=== PATIENT | female | born 1945 | race Caucasian/White ===

== ENCOUNTER 2016-09-19 13:41 | Inpatient (IN) | payer MEDICARE ==
[~2016-09-19] VITALS: Ht 162.6 cm; Wt 98.2 kg
[~2016-09-19 13:41] MED LIST changes: -ALLO100T PO; -ASPI325T PO; -CHOL400D2 PO; -CLIN1CAP6 PO; -COLC1TAB15 PO; -COMMODE 3-IN-11 MIS; -CURCPOW PO; -ENOX40P SQ; -HYDR-3288 PO; -HYDR-3678 PO; -HYDR2TAB PO; -LISI-515 PO; -LISI10TA3 PO; -VITA400C5 PO; -WALKER WHEELS/F1 MIS
[2016-09-19] MEDS ORDERED: ALLO100T PO (14:41)
[2016-09-19] MEDS ORDERED: VITA400C5 PO (14:41)
[2016-09-19] MEDS ORDERED: COLC1TAB15 PO (14:41)
[2016-09-19] MEDS ORDERED: HYDR-3678 PO (14:41)
[2016-09-24] MEDS ORDERED: CHLORHEXIDINE GLUCONATE 2 % 1 PACK (2 CLOTHS) TOPICAL PRN (09:45)
[2016-09-24] MEDS ORDERED: POVIDONE IODINE 5% (ANTISEPSIS KIT) 4 APPLICATIONS EACH NARE PRN (09:45)
[2016-09-24] MEDS ORDERED: INSULIN HUMAN REGULAR 1,000 UNITS/10 ML VIAL SQ PRN (09:45)
[2016-09-24] MEDS ORDERED: METOPROLOL TARTRATE 25 MG TAB PO PRN (09:45)
[2016-09-24] MEDS ORDERED: LACTATED RINGER'S 1000 ML IV PRN (09:45)
[2016-09-24] MEDS ORDERED: SODIUM CHLORID 0.9% 500 ML IV PRN (09:45)
[2016-09-24] MEDS ORDERED: TRANEXAMIC ACID INJ 915 MG in SODIUM CHLORIDE 0.9% INJ 100 ML IV SCH ×2 (10:00→18:41)
[2016-09-24] MEDS ORDERED: ceFAZolin 2 GM PREMIX 50 ML IV SCH (10:00)
[2016-09-24] MEDS ORDERED: EXPAREL PERI-ARTICULAR INJECTION (TOTAL VOL. 60 ML) P-ARTICULR SCH ×2 (10:00)
[2016-09-24] MEDS ORDERED: DEXAMETHASONE SOD PHOS 20 MG/5 ML VIAL IV ONE (10:00)
[2016-09-24] MEDS ORDERED: VANCOMYCIN 1000 MG/NS 250 ML (for <70 kg) IV SCH ×2 (10:00)
[2016-09-24] MEDS ORDERED: SODIUM CHLOR 0.9% 250 ML INJ 250 ML ONE (10:38)
[2016-09-24 11:00] VITALS: BP 153/98; PULSE 83; RESP 20; TEMP 99.1; O2SAT 94
[2016-09-24] MEDS ORDERED: LISI-515 PO (11:24)
[2016-09-24] MEDS ORDERED: CHOL400D2 PO (11:24)
[2016-09-24] MEDS ORDERED: LISI10TA3 PO (11:24)
[2016-09-24] MEDS ORDERED: PROPOFOL 200 MG/20 ML AMP IV ONE (12:20)
[2016-09-24] MEDS ORDERED: PHENYLEPH/NS 1000 MCG/10 ML SYR IV ONE (12:21)
[2016-09-24] MEDS ORDERED: ceFAZolin INJ 1,000 MG VIAL ONE (15:02)
[2016-09-24] MEDS ORDERED: GENTAMICIN SULFATE 80 MG/2 ML VIAL ONE (15:02)
[2016-09-24] MEDS ORDERED: FAMOTIDINE 20 MG/2 ML VIAL ONE (15:11)
[2016-09-24] MEDS ORDERED: BISACODYL 10 MG SUPP RECTAL PRN (17:15)
[2016-09-24] MEDS ORDERED: ONDANSETRON HCL 4 MG/2 ML VIAL IVP PRN (17:15)
[2016-09-24] MEDS ORDERED: MAGNESIUM HYDROXIDE SUSP 30 ML CUP PO PRN (17:15)
[2016-09-24] MEDS ORDERED: SODIUM CHLORIDE 0.9% FLUSH 5 ML FLUSH IVF PRN (17:15)
[2016-09-24] MEDS ORDERED: Post-op Orders (for Pharmacy) MISC XX ONE (17:15)
[2016-09-24] MEDS ORDERED: ALUMINUM/MAGNESIUM/SIMETH 30 ML CUP PO PRN (17:15)
[2016-09-24] MEDS ORDERED: ZOLPIDEM TARTRATE 5 MG TAB PO PRN (17:15)
[2016-09-24] MEDS ORDERED: NALOXONE HCL 0.4 MG/ML AMP IV PRN (17:15)
--- NOTE | 2016-09-24 17:19 | RADRPT ---
EXAM DATE/TIME: 09/24/2016 15:53 [facility] COMPARISON: No previous studies available for comparison. INDICATIONS : Left total hip replacement. MEDICAL HISTORY : None. SURGICAL HISTORY : None. ENCOUNTER: Initial ACUITY: 1 day PAIN SCORE: Non-responsive. LOCATION: Left hip. FINDINGS: 3 spot intraoperative fluoroscopic views of the left hip demonstrate a left total hip arthroplasty. F emoral and acetabular components appear well-seated. CONCLUSION: Postoperative changes left total hip arthroplasty. Mo Hayden MD on September 24, 2016 at 17:17 Board Certified Radiologist. This report was verified electronically.
[2016-09-24] MEDS ORDERED: HYDR2TAB PO (17:20)
[2016-09-24] MEDS ORDERED: ASPI325T PO (17:20)
[2016-09-24] MEDS ORDERED: ENOX40P SQ (17:20)
--- NOTE | 2016-09-24 17:24 | PD.OP ---
cc: Lee Bowden MD Operative Report Date of Surgery: Sep 24, 2016 Preoperative Diagnosis: Left hip avascular necrosis. Left hip severe osteoarthritis. Postoperative Diagnosis: Same Procedure: Left total hip arthroplasty Anesthesia: Spinal Surgeon: Lee Bowden [employer] Consultant(s): ELIDA Gillespie The surgical procedure was assisted by my Advanced Registered Nurse Practitioner. My MULTIGRAPHER presence was necessary throughout this case for the manipulation and positioning of the surgical extremity. My MULTIGRAPHER was assisting me throughout the duration of this procedure. The skill set of an Advance Registered Nurse Practitioner was medically necessary to complete this procedure. During the surgical case, the surgical processor was working at the back table and the Advance Registered Nurse Practitioner was directly assisting me. Operation and Findings: IMPLANT DESCRIPTION: 1. [place] Gription Cup, acetabular size 52. 2. [place] AltrX polyethylene, neutral. 4. [place] femoral stem size 11, no collar, standard offset. 5. Femoral head/neck metal, 36, 1.5. ESTIMATED BLOOD LOSS: 200 cc. JUSTIFICATION FOR PROCEDURE: The patient has end-stage osteoarthritis to the hip. There is an attached conservative measures pathway form in the chart that describes the nonoperative measures that were undertaken prior to consideration of surgical management. The patient understood the risks and benefits of surgical management. See my office notes for further details. PROCEDURE: The patient was brought back to the operative theatre. Adequate anesthesia was obtained. The patient received intravenous Ancef and vancomycin. Note the patient was given a test dose prior to giving the Ancef. The patient was carefully placed on the operative table. The lower extremity was prepped and draped in the usual sterile fashion. Fluoroscopic images were obtained. We made a standard anterior incision over the hip. We dissected through the TFL fascia, exposing the anterior capsule. Arthrotomy was performed in a T-shaped fashion. The capsule was tagged with a #2 FiberWire. End-stage arthritis was identified. No significant effusion was noted. Osteotomy was performed through the femoral neck exposing the acetabulum. Remnants of the labrum were resected and osteophytes were removed. We sequentially reamed the acetabulum. We trialed the hip and placed the final cup into position. This was done under fluoroscopic guidance to obtain the appropriate inclination and anteversion. A manhole cover was placed into the acetabular component. We then placed the final polyethylene into position and confirmed that it was well seated. Capsular attachments on the calcar and the inner aspect of the greater trochanter were resected. On the proximal aspect of the femur we used a rongeur , and box osteotome. Note that when we exposed the proximal femur after the box osteotome we did see edematous cancellous bone within the femoral neck which was consistent with the stress reaction/fracture that was seen on the most recent MRI. We did thoroughly irrigate this area. We followed this by using sequential broaches and lateralizing rasp . We calcar planed the proximal femur. Then thoroughly irrigated the wound. We trialed the hip with the appropriate size stem. We placed the final stem in to position and trialed again. The hip was stable while it was externally rotated 70 degrees when the leg was lowered to the floor. The final head was applied, and final fluoroscopic images were obtained. The wound was thoroughly irrigated again. Interarticular injection of liposomal bupivacaine was given. The capsule was closed with #2 FiberWire and #1 Vicryl. The deep fascia was closed with a #2 Stratafix, followed by 2-0 Vicryl in the skin and kimmie. Postop plan is to weight-bear as tolerated. DVT prophylaxis will be performed with SCDs, ASHIA dorman, early mobilization, and Lovenox followed by aspirin. Lee Bowden MD Sep 24, 2016 17:24
[2016-09-24] MEDS ORDERED: HYDROmorphone HCL 2 MG TAB PO PRN (17:30)
[2016-09-24] MEDS ORDERED: MIDAZOLAM HCL 2 MG/2 ML VIAL ONE (17:46)
--- NOTE | 2016-09-24 18:01 | HHI.DCPOC ---
Discharge Care Plan Diagnosis: (1) Status post total hip replacement, left (2) Stress fracture of left hip Your Health Problems Are: Difficulty with ADL Goals to Promote Your Health * To prevent worsening of your condition and complications * To maintain your health at the optimal level Directions to Meet Your Goals Take your medications as prescribed Follow your dietary instruction Follow activity as directed Keep your appointments as scheduled Take your immunizations and boosters as scheduled If your symptoms worsen call your PCP, if no PCP go to Urgent Care Center or Emergency Room Smoking is Dangerous to Your Health. Avoid second hand smoke Call the 24-hour hour crisis hotline for domestic abuse at Brad Matthews Sep 24, 2016 18:01
--- NOTE | 2016-09-24 18:02 | HHI.FF ---
Face to Face Verification Diagnosis: (1) Status post total hip replacement, left (2) Stress fracture of left hip Physical Therapy Gait training, Transfer training, bed to chair Hip: Total hip Left LE Weight Bearing: WB as tolerated Left LE Range of Motion: Active ROM Nursing Nursing: Reagan teaching, Dressing changes Dressing Changes: Daily dressing change I have seen patient Lucy Tang on 09/24/16. My clinical findings support the need for the requested home health care services because: Limited ability to care for self High risk of falls I certify that my clinical findings support that this patient is homebound because: Post-op weakness Unsteady gait/balance Brad Matthews Sep 24, 2016 18:02
[2016-09-24] MEDS ORDERED: COMMODE 3-IN-11 MIS (18:04)
[2016-09-24] MEDS ORDERED: WALKER WHEELS/F1 MIS (18:04)
[2016-09-24] MEDS ORDERED: *MEPERIDINE 25 MG INJ VIAL PERIprocedural Use ONLY ONE (18:21)
[2016-09-24] MEDS ORDERED: *ENALAPRILAT 1.25 MG/ML VIAL PERIprocedural Use ONLY ONE ×2 (18:21→18:47)
--- NOTE | 2016-09-24 18:28 | RADRPT ---
EXAM DATE/TIME: 09/24/2016 17:47 [facility] COMPARISON: HIP LEFT (AP&LAT 2/3VWS) WO AP PELVIS, September 24, 2016, 15:53. INDICATIONS : Status post op total left hip arthroplasty. MEDICAL HISTORY : None. SURGICAL HISTORY : None. ENCOUNTER: Subsequent ACUITY: 1 day PAIN SCORE: 0/10 LOCATION: Left Hip FINDINGS: Patient is immediately postoperative left bipolar hip arthroplasty which appears intact and normally aligned. No evidence of hardware failure or other acute complication. CONCLUSION: Expected radiographic appearance after left bipolar hip arthroplasty. No acute complication demonstra lizbeth. Zaki Brunner MD on September 24, 2016 at 18:25 Board Certified Radiologist. This report was verified electronically.
[2016-09-24] MEDS: SODIUM CHLOR 0.9% 1000 ML INJ 1,000 ML IV SCH (18:30)
[2016-09-24] MEDS ORDERED: DO NOT ADM ANY ANTICOAGULANT DRUGS PRN (18:30)
[2016-09-24] MEDS ORDERED: *diphenhydrAMINE HCL 50 MG/ML VIAL PERIprocedural Use ONLY ONE (19:00)
[2016-09-24] MEDS: HYDROmorphone HCL PF 2 MG/ML VIAL IV PRN (20:02)
[2016-09-24] MEDS: SODIUM CHLORIDE 0.9% FLUSH 5 ML FLUSH IVF SCH (21:00)
[2016-09-24 21:23] VITALS: BP 143/82; PULSE 100; RESP 18; TEMP 96.4; O2SAT 95
[2016-09-24] MEDS: COLCHICINE 0.6 MG TAB PO SCH (22:08)
[2016-09-24] MEDS: LISINOPRIL 10 MG TAB PO SCH (22:09)
[2016-09-24] MEDS ORDERED: ALLOPURINOL 100 MG TAB PO ONE (23:00)
[2016-09-25] VITALS (9 sets, daily range): BP systolic 125–156; BP diastolic 59–97; PULSE 73–86; RESP 16–18; TEMP 97–98.7; O2SAT 91–97
[2016-09-25] MEDS: HYDROmorphone HCL PF 2 MG/ML VIAL IV PRN
[2016-09-25] MEDS: HYDROmorphone HCL 4 MG TAB PO PRN ×5 (03:45→22:07)
[2016-09-25] MEDS: SODIUM CHLOR 0.9% 1000 ML INJ 1,000 ML IV SCH ×3 (03:45→23:13)
[2016-09-25 05:45] LABS: HEMATOCRIT 37.4 % (35.0-46.0); MEAN CELL VOLUME 85.2 FL (80.0-100.0); MEAN CORPUSCULAR HEMOGLOBIN 29.3 PG (27.0-34.0); MEAN CORPUSCULAR HGB CONC 34.4 % (32.0-36.0); PLATELET COUNT 176 TH/MM3 (150-450); RED BLOOD COUNT 4.39 MIL/MM3 (4.00-5.30); RED CELL DISTRIBUTION WIDTH 13.8 % (11.6-17.2); REVIEW FLAG FINAL
[2016-09-25] MEDS: LEVOTHYROXINE SODIUM 25 MCG TAB PO SCH ×2 (06:18→08:21)
[2016-09-25] MEDS ORDERED: DEXAMETHASONE SOD PHOS 20 MG/5 ML VIAL IV ONE (07:45)
[2016-09-25] MEDS: ALLOPURINOL 100 MG TAB PO SCH (08:21)
[2016-09-25] MEDS: PANTOPRAZOLE SOD 20 MG DELAYED RELEASE TAB PO SCH (08:21)
[2016-09-25] MEDS: LISINOPRIL 20 MG TAB PO SCH (08:21)
[2016-09-25] MEDS: SODIUM CHLORIDE 0.9% FLUSH 5 ML FLUSH IVF SCH ×2 (08:22→21:00)
[2016-09-25] MEDS: COLCHICINE 0.6 MG TAB PO SCH ×2 (08:22→21:00)
[2016-09-25] MEDS: BUDESONIDE-FORMOTEROL 160/4.5 MCG INHALER INH SCH (08:22)
[2016-09-25] MEDS: CITALOPRAM HYDROBROMIDE 20 MG TAB PO SCH (08:22)
[2016-09-25] MEDS ORDERED: HYDROCODONE PO SCH (09:00)
[2016-09-25] MEDS: POVIDONE IODINE 7.5% SCRUB 118 ML BOTTLE TOPICAL SCH (10:00)
--- NOTE | 2016-09-25 12:24 | PD.CONS ---
[facility] By Doctor Lee Bowden Reason for Consult Medical management Primary Care Physician Blaise Barnes MD, PhD Diagnoses: History of Present Illness This is a pleasant 71 y/o Female who was brought in for elective surgery by Doctor Lee Bowden with Diagnosis of Left Hip avascular necrosis of the left Hip with severe OA, status post Left Total Hip arthroplasty, as we know the patient has chronic Pain syndrome and narcotic dependence, Pain medicines handled by Orthopedic surgery she has Obesity, Gout, Depression, Hypothyroidism, Hypertension, COPD, Emphysema , Complex Regional Pain syndrome on left knee and left arm, Multiple surgeries, status post Surgery and no Complaint, she already elected a rehab facility. her friend Miss Jayleen Gellerak with her at this time. she has chronic pain on low back area and left knee managed with injections, until performed this procedure. Review of Systems Musculoskeletal: COMPLAINS OF: Joint pain Past Family Social History Allergies: Coded Allergies: Tylenol (Verified Allergy, Severe, 09/24/16) Oxycontin (Verified Allergy, Intermediate, Rash, 09/24/16) Penicillin (Verified Allergy, Unknown, 09/24/16) Sulfa (Verified Allergy, Unknown, 09/24/16) Uncoded Allergies: AMOBARTITAL (Allergy, Severe, combative behavior, 09/24/16) NOVACAINE (Allergy, Severe, Anaphylaxis, 09/07/15) SODIUM PENTOTHAL (Allergy, Severe, skin blisters, 09/24/16) Past Medical History Gout Depression Hypothyroidism Hypertension COPD/Emphysema Chronic pain syndrome Complex Regional Pain syndrome Past Surgical History Multiple Surgeries status post Trauma specially left arm, left knee Spine surgery 3 years ago Jaw fracture x 2 Tonsillectomy and Adenoids Appendectomy Bartholin's cyst x 8 Tubal ligation Exploratory laparotomy Reported Medications Reported Meds & Active Scripts Active Aspirin 325 Mg Tab 325 Mg PO DAILY Start Aspirin after Lovenox is completed. Lovenox Inj (Enoxaparin Sodium) 40 Mg/0.4 Ml Syr 40 Mg SQ DAILY Start Aspirin after Lovenox is completed. Hydromorphone (Hydromorphone HCl) 2 Mg Tab 1-2 Tab PO Q4H PRN Reported Vitamin D (Cholecalciferol) 400 Unit/Ml Drops 400 Units PO DAILY Lisinopril 10 Mg Tab 10 Mg PO HS Lisinopril 20 Mg Tab 20 Mg PO DAILY Allopurinol 100 Mg Tab 100 Mg PO DAILY Colchicine 0.6 Mg Tab 0.6 Mg PO BID E-400 (Vitamin E) 400 Unit Cap 1 Units PO DAILY Hysingla ER (Hydrocodone ER) 60 Mg Bladimir 1 Tab PO DAILY Symbicort Inh (Budesonide/Formoterol Fumarate) 160-4.5 Mcg/Act Aero 2 Puff INH DAILY Acidophilus (Probiotic Product) 1 Chew Calcium 500 + D (Calcium Carbonate-Vitamin D) 500-125 Mg-Unit Tab 1 Tab PO DAILY Citalopram (Citalopram Hydrobromide) 10 Mg Tab 10 Mg PO DAILY Nexium (Esomeprazole DR) 20 Mg Capdr 20 Mg PO DAILY Levothyroxine (Levothyroxine Sodium) 25 Mcg Tab 25 Mcg PO DAILY Active Ordered Medications Current Medications Medications (Trade) Dose Ordered Sig/Kate Route Start Time Stop Time Status Last Admin (Betadine 7.5% Scrub) 1 applic ONCE TOPICAL 09/24/16 10:00 09/27/16 09:59 (Zyloprim) 100 mg DAILY PO 09/25/16 09:00 09/25/16 08:21 (Symbicort 160-4.5 Inh) 2 puff DAILY INH 09/25/16 09:00 (CeleXA) 10 mg DAILY PO 09/25/16 09:00 09/25/16 08:22 (Colchicine) 0.6 mg BID PO 09/24/16 21:00 09/25/16 08:22 (Synthroid) 25 mcg DAILY@06 PO 09/25/16 06:00 09/25/16 08:21 (Prinivil) 10 mg HS PO 09/24/16 21:00 09/24/16 22:09 (Prinivil) 20 mg DAILY PO 09/25/16 09:00 09/25/16 08:21 (Protonix) 20 mg DAILY PO 09/25/16 09:00 09/25/16 08:21 Patient Own Medication PT OWN MED: Hydrocod... DAILY PO 09/25/16 09:00 Hold (NS 1000 ml Inj) 1,000 ml @ 100 mls/hr Q10H IV 09/24/16 17:13 09/25/16 03:45 (NS Flush) 2 ml UNSCH PRN IVF 4/12/17 17:15 (NS Flush) 2 ml BID IVF 09/24/16 21:00 09/25/16 08:22 (Lovenox Inj) 40 mg Q24H SQ 09/25/16 16:30 10/04/16 16:31 (Theragran M Tab) 1 tab BID PO 09/25/16 21:00 11/24/16 20:59 (Zofran Inj) 4 mg Q6H PRN IVP 09/24/16 17:15 09/25/16 05:21 (Colace) 100 mg BID PO 09/25/16 21:00 (Mag-Al Plus Susp Liq) 30 ml Q6H PRN PO 09/24/16 17:15 (Ambien) 5 mg HS PRN PO 09/24/16 17:15 (Dulcolax Supp) 10 mg DAILY PRN RECTAL 09/24/16 17:15 (Milk Of Magnesia Liq) 30 ml DAILY PRN PO 09/24/16 17:15 (Narcan Inj) 0.4 mg UNSCH PRN IV 09/24/16 17:15 (Benadryl Inj) 25 mg Q6H PRN IV 09/24/16 17:15 (Dilaudid Pf Inj) 1 mg Q3H PRN IV 09/24/16 17:30 09/25/16 00:00 (Dilaudid) 2 mg Q6H PRN PO 09/24/16 17:30 (Dilaudid) 4 mg Q4H PRN PO 09/24/16 17:30 09/25/16 10:11 Miscellaneous Information ALL NURSING DEPARTME... UNSCH PRN .XX 09/24/16 18:30 09/25/16 18:29 Family History Mother status post Peritoneal Cancer Father Metastatic prostate Cancer Brother with bladder cancer Social History Lives by herself after her 2 years ago, smoked since her 18 years of age until 1989, denies other toxic habits, she is disable. Physical Exam Vital Signs Vital Signs Date Time Temp Pulse Resp B/P Pulse Ox O2 Delivery O2 Flow Rate FiO2 09/25/16 08:53 94 21 09/25/16 08:00 98.0 80 18 150/97 93 09/25/16 06:06 96 21 09/25/16 04:00 97.0 84 17 139/88 94 09/25/16 00:00 98.1 86 16 149/87 93 09/24/16 21:23 96.4 100 18 143/82 95 09/24/16 20:45 97.7 88 15 150/89 95 Nasal Cannula 2 09/24/16 20:32 15 09/24/16 20:00 86 15 153/85 94 Nasal Cannula 2 09/24/16 19:30 85 15 155/86 94 Nasal Cannula 2 09/24/16 19:00 97.8 83 15 159/82 94 Nasal Cannula 2 09/24/16 18:45 84 14 163/88 96 Nasal Cannula 3 09/24/16 18:30 97.2 85 14 170/96 95 Nasal Cannula 3 09/24/16 18:15 89 13 180/98 95 Nasal Cannula 3 09/24/16 18:00 96.9 88 13 166/96 94 Nasal Cannula 3 09/24/16 17:45 93 13 155/97 96 Simple Mask 8 09/24/16 17:35 96.8 09/24/16 17:34 96.8 82 12 144/99 94 Simple Mask 8 Physical Exam GENERAL: Obesity, well-developed patient, in no apparent distress. SKIN: No rashes, ecchymoses or lesions. Cool and dry. HEAD: Atraumatic. Normocephalic. No temporal or scalp tenderness. EYES: Pupils equal round and reactive. Extraocular motions intact. No scleral icterus. No injection or drainage. ENT: Nose without bleeding, purulent drainage or septal hematoma. Throat without erythema, tonsillar hypertrophy or exudate. Uvula midline. Airway patent. NECK: Trachea midline. No JVD or lymphadenopathy. Supple, nontender, no meningeal signs. CARDIOVASCULAR: Regular rate and rhythm without murmurs, gallops, or rubs. RESPIRATORY: Decreased breath sounds bilateral, no wheezing or crackles. GASTROINTESTINAL: Abdomen soft, non-tender, nondistended. No hepato-splenomegaly , or palpable masses. No guarding. MUSCULOSKELETAL: Extremities without clubbing, cyanosis, left hip dressed. multiple scars on left arm and left leg. NEUROLOGICAL: Awake and alert. no focal deficits. Laboratory Laboratory Tests Test 09/25/16 04:42 White Blood Count 10.0 Red Blood Count 4.39 Hemoglobin 12.9 Hematocrit 37.4 Mean Corpuscular Volume 85.2 Mean Corpuscular Hemoglobin 29.3 Mean Corpuscular Hemoglobin 34.4 Concent Red Cell Distribution Width 13.8 Platelet Count 176 Mean Platelet Volume 9.3 Result Diagram: 09/25/16 0442 Imaging Last Impressions Hip and Pelvis X-Ray 09/24/16 0000 Signed Impressions: Service Date/Time: Saturday, September 24, 2016 17:47 - CONCLUSION: Expected radiographic appearance after left bipolar hip arthroplasty. No acute complication demonstrated. Zaki Brunner MD Hip X-Ray 09/24/16 0000 Signed Impressions: Service Date/Time: Saturday, September 24, 2016 15:53 - CONCLUSION: Postoperative changes left total hip arthroplasty. Mo Hayden MD Assessment and Plan Assessment and Plan 1. Left Hip avascular necrosis of the left Hip with severe OA, status post Left total hip arthroplasty by Doctor Lee Bowden 2. Chronic Pain syndrome and narcotic dependence to continue her Home medicines 3. Obesity strongly recommended diet and exercise as outpatient 4. COPD Emphysema to continue Bronchodilator, Mucolytic and Incentive spirometry. 5. Gout to continue home medicines 6. Hypothyroidism continue Hormonal replacement 7. Hypertension Mild uncontrol continue Home medicines clonidine as needed for systolic blood pressure over 160 mm Hg. 8. Complex Regional Pain syndrome on left knee and left arm, Multiple surgeries. DVT prophylaxis with Lovenox Appreciated doctor Lee Bowden for the opportunity to be in this case. Code Status Full Code. Discussed Condition With Patient and her Friend in the room Miss Jayleen Heart all questions answered to the best of my abilities. Didier Mejias MD Sep 25, 2016 12:24
--- NOTE | 2016-09-25 12:40 | PD.ORT.PN ---
Subjective Post Op Day #: 1 Subjective Remarks The patient is having mild pain to the left hip. Patient is ambulatory and voiding. Objective Vitals Vital Signs Date Time Temp Pulse Resp B/P Pulse Ox O2 Delivery O2 Flow Rate FiO2 09/25/16 08:53 94 21 09/25/16 08:00 98.0 80 18 150/97 93 09/25/16 06:06 96 21 09/25/16 04:00 97.0 84 17 139/88 94 09/25/16 00:00 98.1 86 16 149/87 93 09/24/16 21:23 96.4 100 18 143/82 95 09/24/16 20:45 97.7 88 15 150/89 95 Nasal Cannula 2 09/24/16 20:32 15 09/24/16 20:00 86 15 153/85 94 Nasal Cannula 2 09/24/16 19:30 85 15 155/86 94 Nasal Cannula 2 09/24/16 19:00 97.8 83 15 159/82 94 Nasal Cannula 2 09/24/16 18:45 84 14 163/88 96 Nasal Cannula 3 09/24/16 18:30 97.2 85 14 170/96 95 Nasal Cannula 3 09/24/16 18:15 89 13 180/98 95 Nasal Cannula 3 09/24/16 18:00 96.9 88 13 166/96 94 Nasal Cannula 3 09/24/16 17:45 93 13 155/97 96 Simple Mask 8 09/24/16 17:35 96.8 09/24/16 17:34 96.8 82 12 144/99 94 Simple Mask 8 I/O 09/24/16 09/24/16 09/24/16 09/25/16 09/25/16 09/25/16 07:00 15:00 23:00 07:00 15:00 23:00 Intake Total 1505 ml 1045 ml Output Total 800 ml 500 ml Balance 705 ml 545 ml Intake Oral 240 ml 360 ml IV Total 465 ml 685 ml Other 800 ml Output Urine Total 550 ml 500 ml Estimated Blood Loss 250 ml # Bowel Movements 0 Result Diagram: 09/25/16 0442 Procedures Left TRIPP Objective Remarks The patient's dressing was changed with scant serosanguineous drainage. Incision is well approximated with surgical clips intact. No redness or s/s of infection. Calf is soft and nontender. EHL/TA/G intact. 2+ pedal pulse. Minimal swelling. + SILT. Assessment & Plan Ortho Post Op Day #: 1 Problem List: Assessment and Plan POD #1: Left TRIPP 1. WBAT LLE 2. Lovenox for DVT prophylaxis 3. Ice to the left hip PRN 4. Anticipatory discharge to SNF ([facility]) on Thursday. Brad Matthews Sep 25, 2016 12:40
[2016-09-25] MEDS ORDERED: HYDROmorphone HCL PF 1 MG/ML VIAL IV PRN (14:15)
[2016-09-25] MEDS: ENOXAPARIN SODIUM 40 MG/0.4 ML SYRINGE SQ SCH (16:35)
[2016-09-25] MEDS: MULTIVITAMINS/MINERALS THERAPEUTIC TAB PO SCH ×2 (21:00→21:15)
[2016-09-25] MEDS: DOCUSATE SODIUM 100 MG CAP PO SCH (21:15)
[2016-09-25] MEDS: LISINOPRIL 10 MG TAB PO SCH (21:16)
[2016-09-26] VITALS (7 sets, daily range): BP systolic 134–163; BP diastolic 73–93; PULSE 70–82; RESP 16–18; TEMP 97.1–99.6; O2SAT 92–97
[2016-09-26] MEDS: HYDROmorphone HCL 4 MG TAB PO PRN ×6 (02:17→22:10)
[2016-09-26] MEDS: LEVOTHYROXINE SODIUM 25 MCG TAB PO SCH (06:00)
[2016-09-26 06:02] LABS: HEMATOCRIT 37.9 % (35.0-46.0); MEAN CELL VOLUME 86.3 FL (80.0-100.0); MEAN CORPUSCULAR HEMOGLOBIN 28.5 PG (27.0-34.0); MEAN CORPUSCULAR HGB CONC 33.1 % (32.0-36.0); PLATELET COUNT 170 TH/MM3 (150-450); RED BLOOD COUNT 4.39 MIL/MM3 (4.00-5.30); REVIEW FLAG FINAL; WHITE BLOOD COUNT 12.1 TH/MM3 (4.0-11.0)
[2016-09-26 06:47] LABS: ANION GAP 8 MEQ/L (5-15); BICARBONATE 30.5 MEQ/L (21.0-32.0); BLOOD UREA NITROGEN 10 MG/DL (7-18); CHLORIDE 105 MEQ/L (98-107); FREE T4 1.06 NG/DL (0.76-1.46); GLOMERULAR FILTRATION RATE 56 ML/MIN (>89); HDL CHOLESTEROL 48.6 MG/DL (40.0-60.0); LDL CHOLESTEROL 92 MG/DL (0-99); MAGNESIUM 2.2 MG/DL (1.5-2.5); SODIUM (NA) 143 MEQ/L (136-145)
[2016-09-26] MEDS: diphenhydrAMINE HCL 50 MG/ML VIAL IV PRN ×2 (08:34→14:21)
[2016-09-26] MEDS: PANTOPRAZOLE SOD 20 MG DELAYED RELEASE TAB PO SCH (08:35)
[2016-09-26] MEDS: CITALOPRAM HYDROBROMIDE 20 MG TAB PO SCH (08:35)
[2016-09-26] MEDS: LISINOPRIL 20 MG TAB PO SCH (08:35)
[2016-09-26] MEDS: ALLOPURINOL 100 MG TAB PO SCH (08:35)
[2016-09-26] MEDS: DOCUSATE SODIUM 100 MG CAP PO SCH ×2 (08:35→22:11)
[2016-09-26] MEDS: MULTIVITAMINS/MINERALS THERAPEUTIC TAB PO SCH ×2 (08:35→21:00)
[2016-09-26] MEDS: COLCHICINE 0.6 MG TAB PO SCH ×2 (08:38→21:00)
[2016-09-26] MEDS: BUDESONIDE-FORMOTEROL 160/4.5 MCG INHALER INH SCH (09:00)
[2016-09-26] MEDS: SODIUM CHLORIDE 0.9% FLUSH 5 ML FLUSH IVF SCH ×2 (09:00→21:00)
[2016-09-26] MEDS: SODIUM CHLOR 0.9% 1000 ML INJ 1,000 ML IV SCH (09:13)
[2016-09-26] MEDS: POVIDONE IODINE 7.5% SCRUB 118 ML BOTTLE TOPICAL SCH (09:43)
--- NOTE | 2016-09-26 11:08 | HHI.PR ---
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 her friend Miss Jayleen Heart with her at this time. she has chronic pain on low back area and left knee managed with injections, until performed this procedure. 09/26: Seen in her bedroom in the presence of her friend Miss Jayleen Heart , no Nausea, vomit or diarrhea. working with Physical therapy, do not complain of pain, Laboratory reviewed. Objective Vital Signs Date Time Temp Pulse Resp B/P Pulse Ox O2 Delivery O2 Flow Rate FiO2 09/26/16 07:55 97 21 09/26/16 07:46 98.1 80 18 163/93 93 09/26/16 00:00 97.1 81 17 153/79 93 09/25/16 20:25 98.4 73 18 130/59 95 09/25/16 20:20 97.8 83 16 125/74 91 09/25/16 18:58 Room Air 09/25/16 16:20 98.5 83 17 156/84 92 09/25/16 12:00 98.7 79 16 138/70 97 I/O 09/25/16 09/25/16 09/25/16 09/26/16 09/26/16 09/26/16 07:00 15:00 23:00 07:00 15:00 23:00 Intake Total 1045 ml 1080 ml 360 ml 240 ml Output Total 500 ml Balance 545 ml 1080 ml 360 ml 240 ml Intake Oral 360 ml 1080 ml 360 ml 240 ml IV Total 685 ml Output Urine Total 500 ml # Voids 8 1 2 # Bowel Movements 0 0 0 Result Diagram: 09/26/16 0516 09/26/16 0516 Imaging Last Impressions Hip and Pelvis X-Ray 09/24/16 0000 Signed Impressions: Service Date/Time: Saturday, September 24, 2016 17:47 - CONCLUSION: Expected radiographic appearance after left bipolar hip arthroplasty. No acute complication demonstrated. Zaki Brunner MD Hip X-Ray 09/24/16 0000 Signed Impressions: Service Date/Time: Saturday, September 24, 2016 15:53 - CONCLUSION: Postoperative changes left total hip arthroplasty. Mo Hayden MD Procedures status post Left total hip arthroplasty by Doctor Lee Bowden 09/25/16 Other Results Laboratory Tests Test 09/24/16 09/26/16 10:45 05:16 Blood Type O POSITIVE Antibody Screen NEGATIVE Blood Bank Comment White Blood Count 12.1 TH/MM3 Red Blood Count 4.39 MIL/MM3 Hemoglobin 12.5 GM/DL Hematocrit 37.9 % Mean Corpuscular Volume 86.3 FL Mean Corpuscular Hemoglobin 28.5 PG Mean Corpuscular Hemoglobin 33.1 % Concent Red Cell Distribution Width 14.0 % Platelet Count 170 TH/MM3 Mean Platelet Volume 9.7 FL Sodium Level 143 MEQ/L Potassium Level 4.0 MEQ/L Chloride Level 105 MEQ/L Carbon Dioxide Level 30.5 MEQ/L Anion Gap 8 MEQ/L Blood Urea Nitrogen 10 MG/DL Creatinine 0.97 MG/DL Estimat Glomerular Filtration 56 ML/MIN Rate Random Glucose 114 MG/DL Calcium Level 8.7 MG/DL Magnesium Level 2.2 MG/DL Triglycerides Level 90 MG/DL Cholesterol Level 159 MG/DL LDL Cholesterol 92 MG/DL HDL Cholesterol 48.6 MG/DL Cholesterol/HDL Ratio 3.27 RATIO Free Thyroxine 1.06 NG/DL Thyroid Stimulating Hormone 0.420 uIU/ML 3rd Gen Objective Remarks GENERAL: Obesity, well-developed patient, in no apparent distress. SKIN: No rashes, ecchymoses or lesions. Cool and dry. HEAD: Atraumatic. Normocephalic. No temporal or scalp tenderness. EYES: Pupils equal round and reactive. Extraocular motions intact. No scleral icterus. No injection or drainage. ENT: Nose without bleeding, purulent drainage or septal hematoma. Throat without erythema, tonsillar hypertrophy or exudate. Uvula midline. Airway patent. NECK: Trachea midline. No JVD or lymphadenopathy. Supple, nontender, no meningeal signs. CARDIOVASCULAR: Regular rate and rhythm without murmurs, gallops, or rubs. RESPIRATORY: Decreased breath sounds bilateral, no wheezing or crackles. GASTROINTESTINAL: Abdomen soft, non-tender, nondistended. No hepato-splenomegaly , or palpable masses. No guarding. MUSCULOSKELETAL: Extremities without clubbing, cyanosis, left hip dressed. multiple scars on left arm and left leg. NEUROLOGICAL: Awake and alert. no focal deficits. Medications and IVs Current Medications Medications (Trade) Dose Ordered Sig/Kate Route Start Time Stop Time Status Last Admin (Betadine 7.5% Scrub) 1 applic ONCE TOPICAL 09/24/16 10:00 09/27/16 09:59 (Zyloprim) 100 mg DAILY PO 09/25/16 09:00 09/26/16 08:35 (Symbicort 160-4.5 Inh) 2 puff DAILY INH 09/25/16 09:00 (CeleXA) 10 mg DAILY PO 09/25/16 09:00 09/26/16 08:35 (Colchicine) 0.6 mg BID PO 09/24/16 21:00 09/26/16 08:38 (Synthroid) 25 mcg DAILY@06 PO 09/25/16 06:00 09/26/16 06:00 (Prinivil) 10 mg HS PO 09/24/16 21:00 09/25/16 21:16 (Prinivil) 20 mg DAILY PO 09/25/16 09:00 09/26/16 08:35 (Protonix) 20 mg DAILY PO 09/25/16 09:00 09/26/16 08:35 Patient Own Medication PT OWN MED: Hydrocod... DAILY PO 09/25/16 09:00 Hold (NS Flush) 2 ml UNSCH PRN IVF 09/24/16 17:15 (NS Flush) 2 ml BID IVF 09/24/16 21:00 09/26/16 09:00 (Lovenox Inj) 40 mg Q24H SQ 09/25/16 16:30 10/04/16 16:31 09/25/16 16:35 (Theragran M Tab) 1 tab BID PO 09/25/16 21:00 11/24/16 20:59 (Zofran Inj) 4 mg Q6H PRN IVP 09/24/16 17:15 09/25/16 05:21 (Colace) 100 mg BID PO 09/25/16 21:00 09/26/16 08:35 (Mag-Al Plus Susp Liq) 30 ml Q6H PRN PO 09/24/16 17:15 (Ambien) 5 mg HS PRN PO 09/24/16 17:15 (Dulcolax Supp) 10 mg DAILY PRN RECTAL 09/24/16 17:15 (Milk Of Magnesia Liq) 30 ml DAILY PRN PO 09/24/16 17:15 (Narcan Inj) 0.4 mg UNSCH PRN IV 09/24/16 17:15 (Benadryl Inj) 25 mg Q6H PRN IV 09/24/16 17:15 09/26/16 14:21 (Dilaudid) 2 mg Q6H PRN PO 09/24/16 17:30 (Dilaudid) 4 mg Q4H PRN PO 09/24/16 17:30 09/26/16 14:21 (Dilaudid Pf Inj) 1 mg Q3H PRN IV 09/25/16 14:15 A/P Assessment and Plan 1. 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 Chronic Pain syndrome and narcotic dependence to continue her Home medicines 3. Obesity strongly recommended diet and exercise as outpatient 4. COPD Emphysema to continue Bronchodilator, Mucolytic and Incentive spirometry. Non exacerbated. 5. Gout to continue home medicines 6. Hypothyroidism continue Hormonal replacement 7. Hypertension Mild uncontrol she is eating and drinking well removed IV fluids. 8. Complex Regional Pain syndrome on left knee and left arm, Multiple surgeries. DVT prophylaxis with Lovenox Code Status Full Code. Discussed Condition With Patient and her Friend in the room Miss Jayleen Mendozajohnparam all questions answered to the best of my abilities. Discharge Planning Expected by tomorrow Didier Mejias MD Sep 26, 2016 11:08
[2016-09-26 11:35] LABS: HEMOGLOBIN A1a 0.8 %; HEMOGLOBIN A1b 1.9 %; HEMOGLOBIN Ao 86.2 %; HEMOGLOBIN LA1C 1.9 %; HEMOGLOBIN P3 3.6 %
--- NOTE | 2016-09-26 15:34 | PD.ORT.PN ---
Subjective Post Op Day #: 2 Subjective Remarks The patient is resting in bed with moderate pain. Patient is ambulatory. Today is better than yesterday per patient. Objective Vitals Vital Signs Date Time Temp Pulse Resp B/P Pulse Ox O2 Delivery O2 Flow Rate FiO2 09/26/16 12:12 99.6 76 16 146/73 93 09/26/16 07:55 97 21 09/26/16 07:46 98.1 80 18 163/93 93 09/26/16 00:00 97.1 81 17 153/79 93 09/25/16 20:25 98.4 73 18 130/59 95 09/25/16 20:20 97.8 83 16 125/74 91 09/25/16 18:58 Room Air 09/25/16 16:20 98.5 83 17 156/84 92 I/O 09/25/16 09/25/16 09/25/16 09/26/16 09/26/16 09/26/16 07:00 15:00 23:00 07:00 15:00 23:00 Intake Total 1045 ml 1080 ml 360 ml 240 ml Output Total 500 ml Balance 545 ml 1080 ml 360 ml 240 ml Intake Oral 360 ml 1080 ml 360 ml 240 ml IV Total 685 ml Output Urine Total 500 ml # Voids 8 1 2 # Bowel Movements 0 0 0 Result Diagram: 09/26/16 0509/26/16515 Procedures Left TRIPP Objective Remarks The patient's dressing is C/D/I. Calf is soft and nontender. EHL/TA/G intact. 2+ pedal pulse. Minimal swelling. + SILT. Assessment & Plan Ortho Post Op Day #: 2 Problem List: Assessment and Plan POD #2: Left TRIPP 1. WBAT LLE 2. Lovenox for DVT prophylaxis 3. Ice to the left hip PRN 4. Anticipatory discharge to SNF ([facility]) on Thursday. Brad Matthews Sep 26, 2016 15:34
[2016-09-26] MEDS: ENOXAPARIN SODIUM 40 MG/0.4 ML SYRINGE SQ SCH (16:33)
[2016-09-26] MEDS: LISINOPRIL 10 MG TAB PO SCH (22:11)
[2016-09-26] MEDS ORDERED: POLYETHYLENE GLYCOL 17 GM PKG PO SCH (22:45)
[2016-09-27] MEDS: HYDROmorphone HCL 4 MG TAB PO PRN ×5 (02:30→22:30)
[2016-09-27] MEDS: LEVOTHYROXINE SODIUM 25 MCG TAB PO SCH (06:56)
[2016-09-27] MEDS: diphenhydrAMINE HCL 50 MG/ML VIAL IV PRN (06:57)
--- NOTE | 2016-09-27 07:39 | PD.ORT.PN ---
Subjective Post Op Day #: 3 Subjective Remarks Patient sitting upright in chair. Admits left hip pain controlled. Admits to walking successfully. Admits to constipation. Feels ready for discharge today. Objective Vitals Vital Signs Date Time Temp Pulse Resp B/P Pulse Ox O2 Delivery O2 Flow Rate FiO2 09/26/16 23:30 98.3 82 17 149/79 92 09/26/16 20:10 98.4 82 17 150/83 94 09/26/16 19:06 Room Air 09/26/16 16:02 98.9 70 16 134/79 94 09/26/16 12:12 99.6 76 16 146/73 93 09/26/16 07:55 97 21 09/26/16 07:46 98.1 80 18 163/93 93 I/O 09/26/16 09/26/16 09/26/16 09/27/16 09/27/16 09/27/16 07:00 15:00 23:00 07:00 15:00 23:00 Intake Total 240 ml 480 ml 480 ml Balance 240 ml 480 ml 480 ml Intake Oral 240 ml 480 ml 480 ml # Voids 2 1 4 # Bowel Movements 0 0 0 Result Diagram: 09/26/16 0516 09/26/16 0516 Procedures Left TRIPP Objective Remarks The patient's dressing is C/D/I. Calf is soft and nontender. EHL/TA/G intact. 2+ pedal pulse. Minimal swelling. Mild area of erythema noted anteriorly. No warmth. + SILT. Assessment & Plan Ortho Post Op Day #: 3 Problem List: Assessment and Plan POD #3: Left TRIPP 1. WBAT LLE 2. Lovenox for DVT prophylaxis 3. Ice to the left hip PRN 4. Anticipatory discharge to SNF ([facility]) today 5. Senakot ordered for constipation. Wendy Gonzales Sep 27, 2016 07:39
[2016-09-27] MEDS ORDERED: SENNOSIDES 8.6 MG TAB PO ONE (07:45)
[2016-09-27 07:54] LABS: HEMATOCRIT 37.9 % (35.0-46.0); MEAN CELL VOLUME 86.7 FL (80.0-100.0); MEAN CORPUSCULAR HEMOGLOBIN 29.2 PG (27.0-34.0); MEAN CORPUSCULAR HGB CONC 33.7 % (32.0-36.0); PLATELET COUNT 193 TH/MM3 (150-450); RED BLOOD COUNT 4.37 MIL/MM3 (4.00-5.30); RED CELL DISTRIBUTION WIDTH 14.4 % (11.6-17.2); REVIEW FLAG FINAL; WHITE BLOOD COUNT 10.2 TH/MM3 (4.0-11.0)
[2016-09-27 08:00] VITALS: BP 151/87; PULSE 86; RESP 18; TEMP 98; O2SAT 92
[2016-09-27] MEDS: SODIUM CHLORIDE 0.9% FLUSH 5 ML FLUSH IVF SCH ×2 (09:00→19:30)
[2016-09-27] MEDS: MULTIVITAMINS/MINERALS THERAPEUTIC TAB PO SCH ×2 (09:00→20:44)
[2016-09-27] MEDS: POLYETHYLENE GLYCOL 17 GM PKG PO SCH (09:00)
[2016-09-27] MEDS: BUDESONIDE-FORMOTEROL 160/4.5 MCG INHALER INH SCH (09:00)
[2016-09-27] MEDS: COLCHICINE 0.6 MG TAB PO SCH ×2 (09:00→20:44)
[2016-09-27] MEDS ORDERED: LACTULOSE SYRUP 20 GM/30 ML CUP PO ONE (09:30)
[2016-09-27] MEDS: CITALOPRAM HYDROBROMIDE 20 MG TAB PO SCH (09:40)
[2016-09-27] MEDS: ALLOPURINOL 100 MG TAB PO SCH (09:41)
[2016-09-27] MEDS: LISINOPRIL 20 MG TAB PO SCH (09:42)
[2016-09-27] MEDS: PANTOPRAZOLE SOD 20 MG DELAYED RELEASE TAB PO SCH (09:42)
[2016-09-27] MEDS: DOCUSATE SODIUM 100 MG CAP PO SCH ×2 (09:43→20:44)
--- NOTE | 2016-09-27 09:49 | HHI.PR ---
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 her friend Miss Jayleen Gellerak with her at this time. she has chronic pain on low back area and left knee managed with injections, until performed this procedure. 09/27: Seen in her bedroom in the presence of her Nurse Miss Marr and Physical Therapy specialist, working fine with PT, has no Nausea, vomit or diarrhea but she has Constipation, will add Lactulose will go today to Home with [facility] Objective Vital Signs Date Time Temp Pulse Resp B/P Pulse Ox O2 Delivery O2 Flow Rate FiO2 09/26/16 23:30 98.3 82 17 149/79 92 09/26/16 20:10 98.4 82 17 150/83 94 09/26/16 19:06 Room Air 09/26/16 16:02 98.9 70 16 134/79 94 09/26/16 12:12 99.6 76 16 146/73 93 I/O 09/26/16 09/26/16 09/26/16 09/27/16 09/27/16 09/27/16 07:00 15:00 23:00 07:00 15:00 23:00 Intake Total 240 ml 480 ml 480 ml Balance 240 ml 480 ml 480 ml Intake Oral 240 ml 480 ml 480 ml # Voids 2 1 4 # Bowel Movements 0 0 0 Result Diagram: 09/27/16 0650 09/26/16 0516 Imaging Last Impressions Hip and Pelvis X-Ray 09/24/16 0000 Signed Impressions: Service Date/Time: Saturday, September 24, 2016 17:47 - CONCLUSION: Expected radiographic appearance after left bipolar hip arthroplasty. No acute complication demonstrated. Zaki Brunner MD Hip X-Ray 09/24/16 0000 Signed Impressions: Service Date/Time: Saturday, September 24, 2016 15:53 - CONCLUSION: Postoperative changes left total hip arthroplasty. Mo Hayden MD Procedures status post Left total hip arthroplasty by Doctor Lee Bowden 09/25/16 Other Results Laboratory Tests Test 09/24/16 09/26/16 09/27/16 10:45 05:16 06:50 Blood Type O POSITIVE Antibody Screen NEGATIVE Blood Bank Comment Sodium Level 143 MEQ/L Potassium Level 4.0 MEQ/L Chloride Level 105 MEQ/L Carbon Dioxide Level 30.5 MEQ/L Anion Gap 8 MEQ/L Blood Urea Nitrogen 10 MG/DL Creatinine 0.97 MG/DL Estimat Glomerular Filtration 56 ML/MIN Rate Random Glucose 114 MG/DL Hemoglobin A1c 5.2 % Calcium Level 8.7 MG/DL Magnesium Level 2.2 MG/DL Triglycerides Level 90 MG/DL Cholesterol Level 159 MG/DL LDL Cholesterol 92 MG/DL HDL Cholesterol 48.6 MG/DL Cholesterol/HDL Ratio 3.27 RATIO Free Thyroxine 1.06 NG/DL Thyroid Stimulating Hormone 0.420 uIU/ML 3rd Gen White Blood Count 10.2 TH/MM3 Red Blood Count 4.37 MIL/MM3 Hemoglobin 12.7 GM/DL Hematocrit 37.9 % Mean Corpuscular Volume 86.7 FL Mean Corpuscular Hemoglobin 29.2 PG Mean Corpuscular Hemoglobin 33.7 % Concent Red Cell Distribution Width 14.4 % Platelet Count 193 TH/MM3 Mean Platelet Volume 9.7 FL Objective Remarks GENERAL: Obesity, well-developed patient, in no apparent distress. SKIN: No rashes, ecchymoses or lesions. Cool and dry. HEAD: Atraumatic. Normocephalic. No temporal or scalp tenderness. EYES: Pupils equal round and reactive. Extraocular motions intact. No scleral icterus. No injection or drainage. ENT: Nose without bleeding, purulent drainage or septal hematoma. Throat without erythema, tonsillar hypertrophy or exudate. Uvula midline. Airway patent. NECK: Trachea midline. No JVD or lymphadenopathy. Supple, nontender, no meningeal signs. CARDIOVASCULAR: Regular rate and rhythm without murmurs, gallops, or rubs. RESPIRATORY: Decreased breath sounds bilateral, no wheezing or crackles. GASTROINTESTINAL: Abdomen soft, non-tender, nondistended. No hepato-splenomegaly , or palpable masses. No guarding. MUSCULOSKELETAL: Extremities without clubbing, cyanosis, left hip dressed. multiple scars on left arm and left leg. NEUROLOGICAL: Awake and alert. no focal deficits. Medications and IVs Current Medications Medications (Trade) Dose Ordered Sig/Kate Route Start Time Stop Time Status Last Admin (Betadine 7.5% Scrub) 1 applic ONCE TOPICAL 09/24/16 10:00 09/27/16 09:59 (Zyloprim) 100 mg DAILY PO 09/25/16 09:00 09/27/16 09:41 (Symbicort 160-4.5 Inh) 2 puff DAILY INH 09/25/16 09:00 (CeleXA) 10 mg DAILY PO 09/25/16 09:00 09/27/16 09:40 (Colchicine) 0.6 mg BID PO 09/24/16 21:00 09/27/16 09:00 (Synthroid) 25 mcg DAILY@06 PO 09/25/16 06:00 09/27/16 06:56 (Prinivil) 10 mg HS PO 09/24/16 21:00 09/26/16 22:11 (Prinivil) 20 mg DAILY PO 09/25/16 09:00 09/27/16 09:42 (Protonix) 20 mg DAILY PO 09/25/16 09:00 09/27/16 09:42 Patient Own Medication PT OWN MED: Hydrocod... DAILY PO 09/25/16 09:00 Hold (NS Flush) 2 ml UNSCH PRN IVF 09/24/16 17:15 (NS Flush) 2 ml BID IVF 09/24/16 21:00 09/27/16 09:00 (Lovenox Inj) 40 mg Q24H SQ 09/25/16 16:30 10/04/16 16:31 09/26/16 16:33 (Theragran M Tab) 1 tab BID PO 09/25/16 21:00 11/24/16 20:59 (Zofran Inj) 4 mg Q6H PRN IVP 09/24/16 17:15 09/25/16 05:21 (Colace) 100 mg BID PO 09/25/16 21:00 09/27/16 09:43 (Mag-Al Plus Susp Liq) 30 ml Q6H PRN PO 09/24/16 17:15 (Ambien) 5 mg HS PRN PO 09/24/16 17:15 (Dulcolax Supp) 10 mg DAILY PRN RECTAL 09/24/16 17:15 09/27/16 09:45 (Milk Of Magnesia Liq) 30 ml DAILY PRN PO 09/24/16 17:15 (Narcan Inj) 0.4 mg UNSCH PRN IV 09/24/16 17:15 (Benadryl Inj) 25 mg Q6H PRN IV 09/24/16 17:15 09/27/16 06:57 (Dilaudid) 2 mg Q6H PRN PO 09/24/16 17:30 (Dilaudid) 4 mg Q4H PRN PO 09/24/16 17:30 09/27/16 06:57 (Dilaudid Pf Inj) 1 mg Q3H PRN IV 09/25/16 14:15 (Miralax) 17 gm DAILY PO 09/27/16 09:00 A/P Assessment and Plan 1. 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 Chronic Pain syndrome and narcotic dependence to continue her Home medicines 3. Obesity strongly recommended diet and exercise as outpatient 4. COPD Emphysema to continue Bronchodilator, Mucolytic and Incentive spirometry. Non exacerbated. 5. Gout to continue home medicines 6. Hypothyroidism continue Hormonal replacement 7. Hypertension Mild uncontrol she is eating and drinking well removed IV fluids. 8. Complex Regional Pain syndrome on left knee and left arm, Multiple surgeries. 9. Constipation added Lactulose DVT prophylaxis with Lovenox Code Status Full Code. Discussed Condition With Patient, Nurse Miss Marr and Physical Therapy specialist, all questions answered to the best of my abilities. Discharge Planning Expected today after she has her BM. Okay from Medicine standpoint to go home today Didier Mejias MD Sep 27, 2016 09:49
[2016-09-27 12:00] VITALS: BP 171/89; PULSE 88; RESP 18; TEMP 98; O2SAT 93
[2016-09-27 16:00] VITALS: BP 160/85; PULSE 88; RESP 18; TEMP 98.5; O2SAT 93
[2016-09-27] MEDS: ENOXAPARIN SODIUM 40 MG/0.4 ML SYRINGE SQ SCH (17:41)
[2016-09-27] MEDS ORDERED: DIATRIZOATE MEGLUM/DIATRIZOATE SOD 9 ML CUP PO ONE (19:15)
[2016-09-27 20:15] VITALS: BP 182/89; PULSE 94; RESP 17; TEMP 99.5; O2SAT 91
[2016-09-27] MEDS: LISINOPRIL 10 MG TAB PO SCH (20:44)
--- NOTE | 2016-09-27 22:32 | RADRPT ---
EXAM DATE/TIME: 09/27/2016 21:59 [facility] COMPARISON: No previous studies available for comparison. INDICATIONS : Obstruction. IV CONTRAST: 95 cc Omnipaque 350 (iohexol) IV ORAL CONTRAST: Prescribed oral contrast ingested. RADIATION DOSE: 19.91 CTDIvol (mGy) MEDICAL HISTORY : Cardiovascular disease. Chronic obstructive pulmonary disease. Renal cyst. Liver cyst. SURGICAL HISTORY : Appendectomy. Left hip replacement. ENCOUNTER: Initial ACUITY: 1 day PAIN SCALE: 6/10 LOCATION: Bilateral abdomen TECHNIQUE: Volumetric scanning of the abdomen and pelvis was performed. Using automated exposure control and ad justment of the mA and/or kV according to patient size, radiation dose was kept as low as reasonably achievable to obtain optimal diagnostic quality images. FINDINGS: There are postoperative changes of left total hip replacement. There is still some fluid soft tissues . Skin kimmie present laterally. There is atelectasis at the right lung base with elevated right hemidiaphragm. Left lung base is agustin r except for minimal scarring. No acute findings in the liver, spleen, adrenals, kidneys or pancreas. Right renal cysts present. No calcified gallstones or biliary ductal dilatation. No pelvic masses. Trace air within the bladder. No bowel obstruction or adenopathy. CONCLUSION: 1. Postoperative left hip replacement recently with edematous change and locules of air within the so ft tissues and skin kimmie laterally. 2. No acute findings within the abdomen and pelvis. Specifically no bowel obstruction, free air or f ree fluid. Eugene Keller MD on September 27, 2016 at 22:27 Board Certified Radiologist. This report was verified electronically.
[2016-09-27] MEDS ORDERED: IOHEXOL 350 MG/ML 10 ML VIAL (for RAD DIAG) IV ONE (22:52)
[2016-09-28 00:25] VITALS: BP 164/79; PULSE 94; RESP 18; TEMP 98; O2SAT 95
[2016-09-28] MEDS: HYDROmorphone HCL 4 MG TAB PO PRN ×3 (03:35→15:55)
[2016-09-28] MEDS: LEVOTHYROXINE SODIUM 25 MCG TAB PO SCH (06:22)
--- NOTE | 2016-09-28 07:37 | PD.ORT.PN ---
Subjective Post Op Day #: 4 Subjective Remarks Patient laying comfortably in bed. CT of abdomen performed last night to rule out ileus - results negative. She denies having a bowel movement. Admits to nausea and sweats. Admits left hip pain controlled. Admits to walking successfully last night. . Objective Vitals Vital Signs Date Time Temp Pulse Resp B/P Pulse Ox O2 Delivery O2 Flow Rate FiO2 09/28/16 00:25 98.0 94 18 164/79 95 09/27/16 20:15 99.5 94 17 182/89 91 09/27/16 16:00 98.5 88 18 160/85 93 09/27/16 12:00 98.0 88 18 171/89 93 09/27/16 08:00 98.0 86 18 151/87 92 I/O 09/27/16 09/27/16 09/27/16 09/28/16 09/28/16 09/28/16 07:00 15:00 23:00 07:00 15:00 23:00 Intake Total 480 ml 600 ml 480 ml Balance 480 ml 600 ml 480 ml Intake Oral 480 ml 600 ml 480 ml # Voids 4 4 3 # Bowel Movements 0 0 0 Result Diagram: 09/27/16 0650 09/26/16 0516 Imaging Last Impressions Abdomen/Pelvis CT 09/27/16 0000 Signed Impressions: Service Date/Time: Tuesday, September 27, 2016 21:59 - CONCLUSION: 1. Postoperative left hip replacement recently with edematous change and locules of air within the soft tissues and skin kimmie laterally. 2. No acute findings within the abdomen and pelvis. Specifically no bowel obstruction, free air or free fluid. Eugene Keller MD Hip and Pelvis X-Ray 09/24/16 0000 Signed Impressions: Service Date/Time: Saturday, September 24, 2016 17:47 - CONCLUSION: Expected radiographic appearance after left bipolar hip arthroplasty. No acute complication demonstrated. Zaki Brunner MD Hip X-Ray 09/24/16 0000 Signed Impressions: Service Date/Time: Saturday, September 24, 2016 15:53 - CONCLUSION: Postoperative changes left total hip arthroplasty. Mo Hayden MD Procedures Left TRIPP Objective Remarks The patient's dressing is C/D/I. Calf is soft and nontender. EHL/TA/G intact. 2+ pedal pulse. Minimal swelling. Mild area of erythema noted anteriorly. No warmth. + SILT. Assessment & Plan Ortho Post Op Day #: 4 Problem List: (1) Status post total hip replacement, left Assessment and Plan POD #4: Left TRIPP 1. WBAT LLE 2. Lovenox for DVT prophylaxis 3. Ice to the left hip PRN 4. Ready for discharge to rehab center from an orthopedic standpoint. Awaiting medical's recommendation for discharge. Wendy Gonzales Sep 28, 2016 07:37
[2016-09-28 08:00] VITALS: BP 160/78; PULSE 80; RESP 18; TEMP 98; O2SAT 92
--- NOTE | 2016-09-28 08:59 | HHI.PR ---
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 her friend Miss Jayleen Gellerak with her at this time. she has chronic pain on low back area and left knee managed with injections, until performed this procedure. 09/27: Seen in her bedroom in the presence of her Nurse Miss Eduardoa and Physical Therapy specialist, working fine with PT, has no Nausea, vomit or diarrhea but she has Constipation, will add Lactulose will go today to Home with [facility] 09/28: patient without complaint, did not have Bowel movement yet received multiple medicine without difficulty awaiting for BM to discharge. Objective Vital Signs Date Time Temp Pulse Resp B/P Pulse Ox O2 Delivery O2 Flow Rate FiO2 09/28/16 00:25 98.0 94 18 164/79 95 09/27/16 20:15 99.5 94 17 182/89 91 09/27/16 16:00 98.5 88 18 160/85 93 09/27/16 12:00 98.0 88 18 171/89 93 I/O 09/27/16 09/27/16 09/27/16 09/28/16 09/28/16 09/28/16 07:00 15:00 23:00 07:00 15:00 23:00 Intake Total 480 ml 600 ml 480 ml 480 ml Balance 480 ml 600 ml 480 ml 480 ml Intake Oral 480 ml 600 ml 480 ml 480 ml # Voids 4 4 3 4 # Bowel Movements 0 0 0 0 Result Diagram: 09/27/16 0650 09/26/16 0516 Imaging Last Impressions Abdomen/Pelvis CT 09/27/16 0000 Signed Impressions: Service Date/Time: Tuesday, September 27, 2016 21:59 - CONCLUSION: 1. Postoperative left hip replacement recently with edematous change and locules of air within the soft tissues and skin kimmie laterally. 2. No acute findings within the abdomen and pelvis. Specifically no bowel obstruction, free air or free fluid. Eugene Keller MD Hip and Pelvis X-Ray 09/24/16 0000 Signed Impressions: Service Date/Time: Saturday, September 24, 2016 17:47 - CONCLUSION: Expected radiographic appearance after left bipolar hip arthroplasty. No acute complication demonstrated. Zaki Brunner MD Hip X-Ray 09/24/16 0000 Signed Impressions: Service Date/Time: Saturday, September 24, 2016 15:53 - CONCLUSION: Postoperative changes left total hip arthroplasty. Mo Hayden MD Procedures status post Left total hip arthroplasty by Doctor Lee Bowden 09/25/16 Other Results Laboratory Tests Test 09/24/16 09/26/16 09/27/16 10:45 05:16 06:50 Blood Type O POSITIVE Antibody Screen NEGATIVE Blood Bank Comment Sodium Level 143 MEQ/L Potassium Level 4.0 MEQ/L Chloride Level 105 MEQ/L Carbon Dioxide Level 30.5 MEQ/L Anion Gap 8 MEQ/L Blood Urea Nitrogen 10 MG/DL Creatinine 0.97 MG/DL Estimat Glomerular Filtration 56 ML/MIN Rate Random Glucose 114 MG/DL Hemoglobin A1c 5.2 % Calcium Level 8.7 MG/DL Magnesium Level 2.2 MG/DL Triglycerides Level 90 MG/DL Cholesterol Level 159 MG/DL LDL Cholesterol 92 MG/DL HDL Cholesterol 48.6 MG/DL Cholesterol/HDL Ratio 3.27 RATIO Free Thyroxine 1.06 NG/DL Thyroid Stimulating Hormone 0.420 uIU/ML 3rd Gen White Blood Count 10.2 TH/MM3 Red Blood Count 4.37 MIL/MM3 Hemoglobin 12.7 GM/DL Hematocrit 37.9 % Mean Corpuscular Volume 86.7 FL Mean Corpuscular Hemoglobin 29.2 PG Mean Corpuscular Hemoglobin 33.7 % Concent Red Cell Distribution Width 14.4 % Platelet Count 193 TH/MM3 Mean Platelet Volume 9.7 FL Objective Remarks GENERAL: Obesity, well-developed patient, in no apparent distress. SKIN: No rashes, ecchymoses or lesions. Cool and dry. HEAD: Atraumatic. Normocephalic. No temporal or scalp tenderness. EYES: Pupils equal round and reactive. Extraocular motions intact. No scleral icterus. No injection or drainage. ENT: Nose without bleeding, purulent drainage or septal hematoma. Throat without erythema, tonsillar hypertrophy or exudate. Uvula midline. Airway patent. NECK: Trachea midline. No JVD or lymphadenopathy. Supple, nontender, no meningeal signs. CARDIOVASCULAR: Regular rate and rhythm without murmurs, gallops, or rubs. RESPIRATORY: Decreased breath sounds bilateral, no wheezing or crackles. GASTROINTESTINAL: Abdomen soft, non-tender, nondistended. No hepato-splenomegaly , or palpable masses. No guarding. MUSCULOSKELETAL: Extremities without clubbing, cyanosis, left hip dressed. multiple scars on left arm and left leg. NEUROLOGICAL: Awake and alert. no focal deficits. Medications and IVs Current Medications Medications (Trade) Dose Ordered Sig/Kate Route Start Time Stop Time Status Last Admin (Zyloprim) 100 mg DAILY PO 09/25/16 09:00 09/27/16 09:41 (Symbicort 160-4.5 Inh) 2 puff DAILY INH 09/25/16 09:00 (CeleXA) 10 mg DAILY PO 09/25/16 09:00 09/27/16 09:40 (Colchicine) 0.6 mg BID PO 09/24/16 21:00 09/27/16 20:44 (Synthroid) 25 mcg DAILY@06 PO 09/25/16 06:00 09/28/16 06:22 (Prinivil) 10 mg HS PO 09/24/16 21:00 09/27/16 20:44 (Prinivil) 20 mg DAILY PO 09/25/16 09:00 09/27/16 09:42 (Protonix) 20 mg DAILY PO 09/25/16 09:00 09/27/16 09:42 Patient Own Medication PT OWN MED: Hydrocod... DAILY PO 09/25/16 09:00 Hold (NS Flush) 2 ml UNSCH PRN IVF 09/24/16 17:15 (NS Flush) 2 ml BID IVF 09/24/16 21:00 09/27/16 19:30 (Lovenox Inj) 40 mg Q24H SQ 09/25/16 16:30 10/04/16 16:31 09/27/16 17:41 (Theragran M Tab) 1 tab BID PO 09/25/16 21:00 11/24/16 20:59 (Zofran Inj) 4 mg Q6H PRN IVP 09/24/16 17:15 09/25/16 05:21 (Colace) 100 mg BID PO 09/25/16 21:00 09/27/16 20:44 (Mag-Al Plus Susp Liq) 30 ml Q6H PRN PO 09/24/16 17:15 (Ambien) 5 mg HS PRN PO 09/24/16 17:15 (Dulcolax Supp) 10 mg DAILY PRN RECTAL 09/24/16 17:15 09/27/16 09:45 (Milk Of Magnesia Liq) 30 ml DAILY PRN PO 09/24/16 17:15 (Narcan Inj) 0.4 mg UNSCH PRN IV 09/24/16 17:15 (Benadryl Inj) 25 mg Q6H PRN IV 09/24/16 17:15 09/27/16 06:57 (Dilaudid) 2 mg Q6H PRN PO 09/24/16 17:30 (Dilaudid) 4 mg Q4H PRN PO 09/24/16 17:30 09/28/16 03:35 (Dilaudid Pf Inj) 1 mg Q3H PRN IV 09/25/16 14:15 (Miralax) 17 gm DAILY PO 09/27/16 09:00 A/P Assessment and Plan 1. 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 Chronic Pain syndrome and narcotic dependence to continue her Home medicines 3. Obesity strongly recommended diet and exercise as outpatient 4. COPD Emphysema to continue Bronchodilator, Mucolytic and Incentive spirometry. Non exacerbated. 5. Gout to continue home medicines 6. Hypothyroidism continue Hormonal replacement 7. Hypertension Mild uncontrol she is eating and drinking well removed IV fluids. 8. Complex Regional Pain syndrome on left knee and left arm, Multiple surgeries. 9. Constipation once have a BM may be discharge from Medicine standpoint. DVT prophylaxis with Lovenox Code Status Full Code. Discussed Condition With Patient, Nurse Miss Marr Discharge Planning Okay to discharge to SNF once she has a BM Didier Mejias MD Sep 28, 2016 08:59 Didier Mejias MD Sep 28, 2016 08:59
[2016-09-28] MEDS: SODIUM CHLORIDE 0.9% FLUSH 5 ML FLUSH IVF SCH (09:00)
[2016-09-28] MEDS: BUDESONIDE-FORMOTEROL 160/4.5 MCG INHALER INH SCH (09:00)
[2016-09-28] MEDS: MULTIVITAMINS/MINERALS THERAPEUTIC TAB PO SCH (09:00)
[2016-09-28] MEDS: DOCUSATE SODIUM 100 MG CAP PO SCH (09:40)
[2016-09-28] MEDS: LISINOPRIL 20 MG TAB PO SCH (09:41)
[2016-09-28] MEDS: ALLOPURINOL 100 MG TAB PO SCH (09:41)
[2016-09-28] MEDS: COLCHICINE 0.6 MG TAB PO SCH (09:41)
[2016-09-28] MEDS: PANTOPRAZOLE SOD 20 MG DELAYED RELEASE TAB PO SCH (09:41)
[2016-09-28] MEDS: POLYETHYLENE GLYCOL 17 GM PKG PO SCH (09:42)
[2016-09-28] MEDS: CITALOPRAM HYDROBROMIDE 20 MG TAB PO SCH (09:43)
[2016-09-28] MEDS ORDERED: LACTULOSE SYRUP 20 GM/30 ML CUP PO ONE (11:00)
[2016-09-28] MEDS ORDERED: GLYCERIN ADULT 2 GM SUPP RECTAL ONE (11:00)
[2016-09-28 12:00] VITALS: BP 178/87; PULSE 80; RESP 16; TEMP 96.9; O2SAT 99
[2016-09-28] MEDS: ENOXAPARIN SODIUM 40 MG/0.4 ML SYRINGE SQ SCH (15:56)
[2016-09-28] MEDS ORDERED: MINERAL OIL ENEMA 118 ML BTL RECTAL ONE (16:15)
--- NOTE | 2016-09-28 23:31 | HHI.DS ---
Discharge Summary Admission Date Sep 24, 2016 at 09:22 Discharge Date: Sep 28, 2016 Admitting Diagnosis Stress fracture of left hip Status post total hip replacement, left Diagnosis: (1) Status post total hip replacement, left Diagnosis: Principal (2) Stress fracture of left hip Diagnosis: Principal Procedures Left TRIPP Brief History This is a 71 year old female patient with a stress fracture of the left hip. CBC/BMP: 09/27/16 0650 09/26/16 0516 Significant Findings Laboratory Tests Test 09/26/16 05:16 White Blood Count 12.1 TH/MM3 (4.0-11.0) Estimat Glomerular Filtration 56 ML/MIN (>89) Rate Random Glucose 114 MG/DL (74-106) PE at Discharge The patient's dressing is C/D/I. Calf is soft and nontender. EHL/TA/G intact. 2+ pedal pulse. Minimal swelling. Mild area of erythema noted anteriorly. No warmth. + SILT. Hospital Course The patient was admitted to the hospital for a stress fracture of the left hip for a left TRIPP. The patient's surgery went well with no complications. The patient is WBAT on the left LE. The patient was placed on a regular diet. The patient was kept an additional night to help r/o Ileus of the abdomen which was negative. The patient was discharged to a SNF and will f/u with Dr. Bowden in 2 weeks. Pt Condition on Discharge: Stable Discharge Disposition: Disch w/ Home Health Serv Discharge Instructions Diet Instructions: As Tolerated, No Restrictions Activities You Can Perform: Weight Bearing as Ken Activities to Avoid: Strenuous Activity Follow up Referrals: Orthopedics with Lee Bowden MD New Medications: Aspirin (Aspirin) 325 Mg Tab 325 MG PO DAILY Start Aspirin after Lovenox is completed. Prevent Blood Clot # 30 Ref 0 TAB Commode 3-in-1 (Commode 3-in-1) 1 Mis Mis 1 EA .ROUTE DIRECTED #1 Ref 0 EA Enoxaparin Inj (Lovenox Inj) 40 Mg/0.4 Ml Syr 40 MG SQ DAILY Start Aspirin after Lovenox is completed. Blood Clot Prevention # 10 Ref 0 SYRINGE Hydromorphone (Hydromorphone) 2 Mg Tab 1-2 TAB PO Q4H PRN PAIN #60 Ref 0 TAB Walker with Front Wheels (Walker with Front Wheels) 1 Mis Mis 1 EA .ROUTE DIRECTED #1 Ref 0 EA Continued Medications: Allopurinol (Allopurinol) 100 Mg Tab 100 MG PO DAILY Gout #30 Ref 0 TAB Budesonide-Formoterol Inh (Symbicort Inh) 160-4.5 Mcg/Act Aero 2 PUFF INH DAILY #1 Ref 0 INHALER Calcium Carbonate-Vitamin D (Calcium 500 + D) 500-125 Mg-Unit Tab 1 TAB PO DAILY TAB Cholecalciferol (Vitamin D) 400 Unit/Ml Drops 400 UNITS PO DAILY BOTTLE Citalopram (Citalopram) 10 Mg Tab 10 MG PO DAILY Control Depression #30 Ref [address] (Nexium) 20 Mg Capdr 20 MG PO DAILY Ref 0 CAP Levothyroxine (Levothyroxine) 25 Mcg Tab 25 MCG PO DAILY Thyroid #30 Ref 0 TAB Lisinopril (Lisinopril) 20 Mg Tab 20 MG PO DAILY Ref 0 TAB Lisinopril (Lisinopril) 10 Mg Tab 10 MG PO HS Ref 0 TAB Probiotic Product (Acidophilus) 1 Chew Discontinued Medications: Hydrocodone ER (Hysingla ER) 60 Mg Bladimir 1 TAB PO DAILY Vitamin E (E-400) 400 Unit Cap 1 UNITS PO DAILY Brad Matthews Sep 28, 2016 23:31
[2016-11-24] MEDS ORDERED: ASPI325T PO (14:36)
[2016-11-24] MEDS ORDERED: HYDR-3678 PO (14:36)
[2016-11-24] MEDS ORDERED: CURCPOW PO (14:36)
[2016-12-10] MEDS ORDERED: CLIN1CAP6 PO (10:35)
[2016-12-10] MEDS ORDERED: HYDR-3288 PO (10:35)
== END 2016-09-28 21:15 | DRG 470 ==
LOC: HSDI 09-24 09:22 → N06A 09-24 20:58
PROVIDERS: ADMIT Orthopaedic Surgery; ATTEND Orthopaedic Surgery
PROC: 0SRB02A Replacement of Left Hip Joint with Metal on Polyethylene Synthetic Substitute, Uncemented, Open Approach (ICD-10-PCS; principal; 2016-09-24 15:15)
DX: M16.12 Unilateral primary osteoarthritis, left hip (principal); M87.9 Osteonecrosis, unspecified; F11.20 Opioid dependence, uncomplicated; E66.9 Obesity, unspecified; Z68.37 Body mass index [BMI] 37.0-37.9, adult; I10 Essential (primary) hypertension; M84.352A Stress fracture, left femur, initial encounter for fracture; J43.9 Emphysema, unspecified; G89.4 Chronic pain syndrome; E03.9 Hypothyroidism, unspecified; K59.00 Constipation, unspecified; M10.9 Gout, unspecified; F32.9 Major depressive disorder, single episode, unspecified; K21.9 Gastro-esophageal reflux disease without esophagitis; Z71.3 Dietary counseling and surveillance; Z87.891 Personal history of nicotine dependence; Z88.6 Allergy status to analgesic agent; Z88.5 Allergy status to narcotic agent; Z88.0 Allergy status to penicillin; Z88.2 Allergy status to sulfonamides
CPT/HCPCS: 73502; 74177; 76000; 80048; 80061; 83036; 83735; 84439; 84443; 85027; 86850; 86900; 86901; 94150; C1776; C9290; J0690; J1100; J1170; J1200; J1580; J1650; J2175; J2250; J2370; J2405; J3010; J3370; J7030; J7050; J7120; Q9963; Q9967

== ENCOUNTER → 2016-09-19 | Outpatient (CLI) | payer MEDICARE ==
[~2016-09-19] MED LIST: ALLO100T PO; ASPI325T PO; CALCTAB23 PO; CHOL400D2 PO; CITA10TA4 PO; CLIN1CAP6 PO; COLC1TAB15 PO; COMMODE 3-IN-11 MIS; CURCPOW PO; ENOX40P SQ; HYDR-3288 PO; HYDR-3678; HYDR-3678 PO; HYDR2TAB PO; LEVO25TA4 PO; LISI-515 PO; LISI10TA3 PO; LISI30TA4 PO; NEXI20CA PO; PROB1CHW2 PO; SYMB160A INH; VITA400C5 PO; WALKER WHEELS/F1 MIS
[2016-09-19 14:21] LABS: AUTOMATED NEUTROPHIL # 4.4 TH/MM3 (1.8-7.7); BASOPHIL % 0.5 % (0.0-2.0); EOSINOPHIL % 0.1 % (0.0-4.0); HEMATOCRIT 44.7 % (35.0-46.0); HEMO FLAGS DIFF FINAL; LYMPH % 37.9 % (9.0-44.0); LYMPHOCYTE # 3.1 TH/MM3 (1.0-4.8); MEAN CELL VOLUME 85.2 FL (80.0-100.0); MEAN CORPUSCULAR HEMOGLOBIN 29.1 PG (27.0-34.0); MEAN CORPUSCULAR HGB CONC 34.2 % (32.0-36.0); NEUT % 53.5 % (16.0-70.0); PLATELET COUNT 246 TH/MM3 (150-450); RED BLOOD COUNT 5.24 MIL/MM3 (4.00-5.30); RED CELL DISTRIBUTION WIDTH 14.6 % (11.6-17.2); WHITE BLOOD COUNT 8.3 TH/MM3 (4.0-11.0)
[2016-09-19 14:26] LABS: APTT (PATIENT) 27.3 SEC (24.3-30.1); PROTHROMBIN TIME - PATIENT 10.9 SEC (9.8-11.6)
[2016-09-19 14:28] LABS: BLOOD, URINE NEG (NEG); COMMENT (UR) CULT NOT INDICATED; CULTURE IF INDICATED CULT NOT INDICATED; GLUCOSE,URINE NEG (NEG); KETONE, URINE NEG (NEG); MUCUS URINE FEW /lpf (OCC); NITRITE,URINE NEG (NEG); SQUAMOUS EPITHELIAL CELL URINE 1 /hpf (0-5); URINE COLOR YELLOW (YELLW/STRAW)
[2016-09-19 14:40] LABS: WESTERGREN SEDIMENTATION RATE 10 mm/hr (0-30)
[2016-09-19 14:44] LABS: ALKALINE PHOSPHATASE 91 U/L (45-117); ALT (GPT) 39 U/L (10-53); ANION GAP 9 MEQ/L (5-15); AST (GOT) 35 U/L (15-37); BICARBONATE 28.9 MEQ/L (21.0-32.0); BLOOD UREA NITROGEN 9 MG/DL (7-18); CHLORIDE 103 MEQ/L (98-107); GLOMERULAR FILTRATION RATE 52 ML/MIN (>89); GLUCOSE,FASTING 95 MG/DL (74-99); POTASSIUM 3.6 MEQ/L (3.5-5.1); SODIUM (NA) 141 MEQ/L (136-145); TOTAL BILIRUBIN ADULT 0.6 MG/DL (0.2-1.0)
--- NOTE | 2016-09-19 15:33 | RADRPT ---
EXAM DATE/TIME: 09/19/2016 14:43 [facility] COMPARISON: FLUOROSCOPY FOR INTERVENTIONAL PAIN, SPINAL UP TO 1 HR, April 09, 2016, 0:00. INDICATIONS : Evaluate for pneumonia, pneumothorax and communicable diseases. Pre-op total hip replacement. MEDICAL HISTORY : None. SURGICAL HISTORY : None. ENCOUNTER: Initial ACUITY: 1 day PAIN SCORE: 0/10 LOCATION: Bilateral chest FINDINGS: There is elevation of the right hemidiaphragm of uncertain etiology. The lungs are clear. The bony st ructures are grossly intact. CONCLUSION: 1. Elevated right hemidiaphragm. 2. No acute cardiopulmonary findings. Brad Esteban MD on September 19, 2016 at 15:03 Board Certified Radiologist. This report was verified electronically.
--- NOTE | 2016-09-20 14:35 | EKG ---
Date Performed: 09/19/2016 Time Performed: 14:04:09 PTAGE: 71 years EKG: Sinus rhythm WITH SHORT LA INTERVAL MINIMAL ST DEPRESSION Compared to prior tracing no significant change BORDERL INE ECG PREVIOUS TRACING : 02/16/1997 15.23 DOCTOR: Elieser Ibarra Interpretating Date/Time 09/20/2016 14:33:18
== END ==
LOC: CPRE 13:31
PROVIDERS: ATTEND Orthopaedic Surgery
DX: Z01.810 Encounter for preprocedural cardiovascular examination (principal); Z01.811 Encounter for preprocedural respiratory examination; Z01.812 Encounter for preprocedural laboratory examination; Z96.60 Presence of unspecified orthopedic joint implant; M79.609 Pain in unspecified limb; M25.50 Pain in unspecified joint; R94.31 Abnormal electrocardiogram [ECG] [EKG]
CPT/HCPCS: 36415; 71020; 80053; 81001; 85025; 85610; 85652; 85730; 93005

== ENCOUNTER → 2016-12-10 | Day surgery (SDC) | payer MEDICARE ==
[~2016-12-10] VITALS: Ht 162.6 cm; Wt 92.4 kg
[~2016-12-10] MED LIST changes: +ALLO100T PO; +ASPI325T PO; +BUPIVACAINE HCL PF 0.5% 30 ML VIAL ONE; -CALCTAB23 PO; +CHLORHEXIDINE GLUCONATE 2 % 1 PACK (2 CLOTHS) TOPICAL PRN; +CHOL400D2 PO; +CIPROFLOXACIN 400 MG PREMIX 200 ML ONE; +CLIN1CAP6 PO; +COLC1TAB15 PO; +CURCPOW PO; +HYDR-3288 PO; -HYDR-3678; +HYDR-3678 PO; +INSULIN HUMAN REGULAR 1,000 UNITS/10 ML VIAL SQ PRN; +KETAMINE HCL 500 MG/5 ML VIAL ONE; +LACTATED RINGER'S 1000 ML IV PRN; +LIDOCAINE HCL 2% 50 ML VIAL ONE; +LISI-515 PO; +LISI10TA3 PO; -LISI30TA4 PO; +METOPROLOL TARTRATE 25 MG TAB PO PRN; +MIDAZOLAM HCL 2 MG/2 ML VIAL ONE; +POVIDONE IODINE 5% (ANTISEPSIS KIT) 4 APPLICATIONS EACH NARE PRN; +SODIUM CHLORID 0.9% 500 ML IV PRN; +VANCOMYCIN INJ 1,000 MG in SODIUM CHLOR 0.9% 250 ML INJ 250 ML IV STA; +diphenhydrAMINE HCL 50 MG/ML VIAL ONE
[2016-12-10 08:47] VITALS: BP 142/83; PULSE 88; RESP 18; TEMP 98.2; O2SAT 94
[2016-12-10 09:39] LABS: AUTOMATED NEUTROPHIL # 3.2 TH/MM3 (1.8-7.7); BASOPHIL # 0.1 TH/MM3 (0-0.2); BASOPHIL % 0.9 % (0.0-2.0); EOSINOPHIL # 0.1 TH/MM3 (0-0.4); EOSINOPHIL % 1.8 % (0.0-4.0); HEMATOCRIT 44.9 % (35.0-46.0); HEMO FLAGS DIFF FINAL; LYMPH % 37.6 % (9.0-44.0); LYMPHOCYTE # 2.4 TH/MM3 (1.0-4.8); MEAN CELL VOLUME 84.6 FL (80.0-100.0); MEAN CORPUSCULAR HGB CONC 33.1 % (32.0-36.0); MONO % 10.3 % (0.0-8.0); NEUT % 49.4 % (16.0-70.0); PLATELET COUNT 202 TH/MM3 (150-450); RED CELL DISTRIBUTION WIDTH 14.8 % (11.6-17.2); WHITE BLOOD COUNT 6.4 TH/MM3 (4.0-11.0)
[2016-12-10 12:45] VITALS: BP 137/67; PULSE 90; RESP 18; TEMP 98; O2SAT 95
--- NOTE | 2016-12-11 22:13 | MP ---
cc: CONRADO COVINGTON III, M.D. DATE OF SURGERY 12/10/2016 PREOPERATIVE DIAGNOSIS 1. Right carpal tunnel syndrome. 2. Right thumb, index, middle and ring finger trigger fingers. PROCEDURE PERFORMED 1. Right open carpal tunnel release. 2. Right thumb, index finger, middle finger and ring finger A1 jack release, all separate incisions. SURGEON Conrado Covington III, MD PROCEDURE IN DETAIL The patient was brought to the operating room, placed supine on the operating table. After the correct side and site of surgery were verified by members of each team in the room multiple times including the patient, myself and after adequate preop markings and preoperative written consent were verified by everyone and after adequate preoperative time-out was performed to everyone's satisfaction, after adequate IV sedation had been achieved the right upper extremity was prepped and draped in the traditional sterile surgical fashion. A 50/50 mixture of 2% plain lidocaine with 0.5% plain Marcaine was infiltrated in the skin and subcutaneous tissue at the base of the palm and into the palm overlying the A1 pulleys of the thumb, index, middle and ring fingers. The limb was exsanguinated with an Valeriy wrap and a highly placed well-padded axillary tourniquet was inflated to 250 mmHg for approximately 18 minutes. A longitudinally oriented incision at the base of the palm being carried down through the skin and subcutaneous tissue. Palmar fascia was retracted in opposite directions. The transverse carpal ligament was identified and divided in its midline from its proximal most to its distal most extents completely freeing up the carpal tunnel contents. They were examined and found to be in continuity but pale with a moderately hypertrophic tenosynovium but otherwise no anatomic abnormalities were identified. No mass effect was identified. Thorough irrigation with saline was performed. The skin edges were reapproximated using running 4-0 nylon suture. Attention was then paid to the ring finger. The transverse incision was made in the distal palmar flexion crease over the A1 jack. Blunt dissection was performed. Bipolar electrocautery was used to control subcutaneous bleeders. The A1 pulleys identified and divided in its midline from its proximal most to its distal-most extent, completely freeing the tendon. The flexor tendons were examined and found to be non-compromised. There are no other anatomic abnormalities. Thorough irrigation was performed with saline and the skin edges were reapproximated using running 4-0 nylon suture. The identical procedure was then performed for the third A1 jack, the second A1 jack, and the thumb A1 jack. All with identical findings. The hand and arm were thoroughly cleansed and dried. Betadine Adaptic dressings were applied on top of the wounds followed by a bulky soft dressing. Bulky circumferential dressing was then applied using Valeriy wrap in the usual fashion. The axillary tourniquet was released and then the hand, all the fingers on the right including the thumb became immediately soft, pink and warm and had brisk capillary refill of less than 2 seconds. The patient was awakened from anesthesia and transported to the Post Anesthesia Care Unit awake and in stable condition at the end of the case. Sponge, needle, instrument counts were correct at the end of the case as reported by nurses in the room. MD MATIAS Roach III/[place] /11:42 AM /10:05 PM
== END | disposition home or self-care (01) ==
LOC: HSDC 07:52
PROVIDERS: ATTEND Orthopaedic Surgery Hand Surgery
DX: G56.01 Carpal tunnel syndrome, right upper limb (principal); M65.311 Trigger thumb, right thumb; M65.321 Trigger finger, right index finger; M65.331 Trigger finger, right middle finger; J44.9 Chronic obstructive pulmonary disease, unspecified; M65.341 Trigger finger, right ring finger; Z01.818 Encounter for other preprocedural examination
CPT/HCPCS: 01810; 26055; 64721; 85025; J0744; J1200; J2250; J7120

== ENCOUNTER → 2017-03-19 | Day surgery (SDC) | payer MEDICARE ==
[~2017-03-19] VITALS: Ht 162.6 cm; Wt 91.0 kg
[~2017-03-19] MED LIST changes: +ALPR.25 PO; -ASPI325T PO; -CHOL400D2 PO; +CIPR-9 PO; -CIPROFLOXACIN 400 MG PREMIX 200 ML ONE; +CIPROFLOXACIN/DEXT 400 MG/200 ML IV SCH; -CURCPOW PO; +FAMOTIDINE 20 MG/2 ML VIAL ONE; +KETAMINE HCL 500 MG/10 ML VIAL ONE; -KETAMINE HCL 500 MG/5 ML VIAL ONE; +LACTATED RINGER'S 1000 ML INJ 1,000 ML IV ONE; -LISI-515 PO; -LISI10TA3 PO; +LISI30TA4 PO; +METO25TA3 PO; -MIDAZOLAM HCL 2 MG/2 ML VIAL ONE; +PROPOFOL 200 MG/20 ML AMP IV ONE; -VANCOMYCIN INJ 1,000 MG in SODIUM CHLOR 0.9% 250 ML INJ 250 ML IV STA; -diphenhydrAMINE HCL 50 MG/ML VIAL ONE
[2017-03-19 11:05] LABS: HEMATOCRIT 43.9 % (35.0-46.0); MEAN CELL VOLUME 86.7 FL (80.0-100.0); MEAN CORPUSCULAR HEMOGLOBIN 28.9 PG (27.0-34.0); MEAN CORPUSCULAR HGB CONC 33.3 % (32.0-36.0); PLATELET COUNT 199 TH/MM3 (150-450); RED BLOOD COUNT 5.06 MIL/MM3 (4.00-5.30); RED CELL DISTRIBUTION WIDTH 13.9 % (11.6-17.2); REVIEW FLAG FINAL; WHITE BLOOD COUNT 8.4 TH/MM3 (4.0-11.0)
--- NOTE | 2017-03-19 13:34 | MP ---
cc: CONRADO COVINGTON III, M.D. DATE OF SURGERY: 03/19/2017 PREOPERATIVE DIAGNOSIS 1. Left carpal tunnel syndrome. 2. Left index finger trigger finger, left middle finger trigger finger, left ring finger trigger finger, left small finger trigger finger, left index finger mass, left ring finger mass. PROCEDURE 1. Left open carpal tunnel release. 2. Left index finger A1 jack release. 3. Left middle finger A1 jack release. 4. Left ring finger A1 jack release. 5. Left small finger A1 jack release. 6. Left index finger mass excisional biopsy. 7. Left ring finger mass excisional biopsy. SURGEON Conrado Covington III, MD PROCEDURE The patient was brought to the operating room and placed supine on the operating table. After the correct site and side of surgery were verified by members of each team in the room multiple times including the patient, myself and after adequate preoperative markings, preoperative written consent were verified by everyone and after adequate preoperative time-out was performed to everyone's satisfaction, after adequate general anesthesia had been achieved the left upper extremity was prepped and draped in traditional sterile surgical fashion. A 50/50 mixture of 2% plain lidocaine, 0.5% plain Marcaine was infiltrated into the carpal tunnel and the areas of the planned incision. The limb was exsanguinated with a gentle Valeriy wrap and highly placed, well-padded axillary tourniquet was placed around the patient's upper arm where she showed it would be okay to put it, it was inflated to [address] and kept in place for 40 total minutes. The carpal tunnel was addressed first and a longitudinally oriented incision within the skin crease at the base of the palm was made and carried down through skin and subcutaneous tissue. Blunt dissection was performed and the transverse carpal ligament was identified, transected in the midline in its entirety from proximal most to its distal-most extents. The median nerve was examined and was found to have a fibrous sheath surrounding it, so this was opened and an internal neurolysis was performed. The nerve bundles and ____ appeared to be in continuity, otherwise there was no mass effect or any other obvious abnormality. Thorough irrigation with saline was performed and the skin edges were reapproximated using running 4-0 Nylon suture. Through three separate incisions the A1 pulleys of the index, middle, ring and small fingers were then completely released with the fourth and fifth being done through one combined small incision. These were all placed within skin flexion creases. Bipolar electrocautery was used as needed. Examination proximally and distally in all fingers did not reveal any crossing bands of tissue. The tendons were in continuity otherwise non-compromised but there was a significantly hypertrophic synovial layer around each of the tendons but they moved freely and easily after the A1 pulleys were opened. There were no other anatomic abnormalities. Thorough irrigation was performed. Skin edges were all reapproximated using interrupted and running 4-0 Nylon sutures. The index finger mass at the tip was then excised in oval-shaped incision and this was passed off the field in its entirety. There was no encroachment into the mass itself and the internal aspect of the mass were never opened. Thorough irrigation was performed and running 5-0 Nylon suture was used to close this wound. The ring finger was then tended to and through a small jcarlos Teddy style incision, the mass was excised in its entirety. Bipolar electrocautery was used to dissect it from the base of the wound, but it did not go into the flexor sheath or involved any neurovascular bundles. There were no other anatomic abnormalities. The skin edges were then reapproximated using running 5-0 Nylon suture after a thorough irrigation with saline was performed. The hand and arm were thoroughly cleansed and dried. Betadine Adaptic dressings were applied on top of all the wounds followed by a bulky soft dressing. Hemostasis was present. The axillary tourniquet was released and the hand and all the fingers became immediately soft, pink and warm and had brisk capillary refill of less than 2 seconds. The patient was able to freely wiggle all of her fingers when she was awoken. She was transferred to the Post Anesthesia Care Unit awake and in stable condition at the end of the case. Sponge, needle and instrument counts were correct at the end of the case as reported by the nurses in the room. MD MATIAS Roach III/LUCY /12:34 PM /1:06 PM
[2017-03-19 13:54] VITALS: BP 164/83; PULSE 72; RESP 16; TEMP 98.1; O2SAT 95
== END | disposition home or self-care (01) ==
LOC: PHSDC 08:54
PROVIDERS: ATTEND Orthopaedic Surgery Hand Surgery
DX: G56.02 Carpal tunnel syndrome, left upper limb (principal); M65.322 Trigger finger, left index finger; M65.332 Trigger finger, left middle finger; M65.342 Trigger finger, left ring finger; M65.352 Trigger finger, left little finger; D36.12 Benign neoplasm of peripheral nerves and autonomic nervous system, upper limb, including shoulder; L72.0 Epidermal cyst; I10 Essential (primary) hypertension; J45.909 Unspecified asthma, uncomplicated; E03.9 Hypothyroidism, unspecified; K21.9 Gastro-esophageal reflux disease without esophagitis; E66.9 Obesity, unspecified; Z68.34 Body mass index [BMI] 34.0-34.9, adult; Z79.899 Other long term (current) drug therapy
CPT/HCPCS: 01810; 11421; 26055; 36415; 64721; 85027; 88304; 88307; 88341; 88342; J0744; J7120; 88305

== ENCOUNTER → 2017-10-21 | Day surgery (SDC) | payer MEDICARE ==
[~2017-10-21] VITALS: Ht 162.6 cm; Wt 90.7 kg
[~2017-10-21] MED LIST changes: +ACETAMINOPHEN 1000 MG/100 ML 100 ML IV ONE; +BUPIVACAINE HCL PF 0.5% 10 ML VIAL ONE; -BUPIVACAINE HCL PF 0.5% 30 ML VIAL ONE; +CALC1TAB87 PO; -CIPR-9 PO; +CIPR250T52 PO; +CIPROFLOXACIN/DEXT 400 MG/200 ML IV PRN; -CIPROFLOXACIN/DEXT 400 MG/200 ML IV SCH; -CLIN1CAP6 PO; -FAMOTIDINE 20 MG/2 ML VIAL ONE; -HYDR-3288 PO; -INSULIN HUMAN REGULAR 1,000 UNITS/10 ML VIAL SQ PRN; -KETAMINE HCL 500 MG/10 ML VIAL ONE; -LACTATED RINGER'S 1000 ML INJ 1,000 ML IV ONE; +MIDAZOLAM HCL 2 MG/2 ML VIAL ONE; +NEOMYCIN/POLYMYXIN 1 ML G.U. IRRIGANT ONE; +OXYC-392 PO; +PRED10 PO; -PROPOFOL 200 MG/20 ML AMP IV ONE; +TIZA4TAB PO
[2017-10-21 11:45] VITALS: PULSE 107
[2017-10-21 13:15] VITALS: BP 147/79; PULSE 90; RESP 16; TEMP 98.9; O2SAT 98
--- NOTE | 2017-10-21 18:44 | MP ---
cc: Conrado Covington MD, Louis C MD DATE OF OPERATION: 10/21/2017 PREOPERATIVE DIAGNOSIS: Prominent retained painful hardware, left ulna/elbow. PROCEDURE PERFORMED: 1. Exploration and removal, under fluoroscopic guidance, of 4 painful screws in the left ulna/elbow. 2. Use of image intensifier. SURGEON: Conrado Covington III, MD INDICATIONS: The patient was brought to the operating room and placed supine on the operating table. After the correct site and side of surgery were verified by members of each team in the room multiple times including the patient and myself and after adequate preoperative markings and preoperative written consent was verified by everyone, after adequate preoperative timeout was performed to everyone's satisfaction, after adequate general anesthesia had been achieved, the left upper extremity was prepped and draped in traditional sterile surgical fashion. The mini C-arm was used to verify the site of procedure and to verify the screws that were backing out. A 50/50 mixture of 2% plain lidocaine, 0.5% plain Marcaine was infiltrated into the skin and subcutaneous tissue. A longitudinal incision 1/3 of the length of her previous incision utilizing the old scar was made and sharp and blunt dissection was performed down to the areas of the hardware where the screws were backing out and were prominent. These were then removed, four separate screws from 4 separate locations. A thorough irrigation was performed. There was no evidence of any instability on examination. The bones looked to be completely healed to remove the remainder of the hardware for no reason was a much more extensive undertaking and the patient and I agreed to not do this. The tourniquet was never used. Thorough irrigation was used again. Skin edges were reapproximated using running 4-0 nylon sutures. The deep tissue was reapproximated over the hardware using 3-0 Vicryl sutures. The hand and arm were thoroughly cleansed and dried. Betadine, Adaptic dressing was applied on top of the wound, followed by a bulky soft dressing. The fingers were all soft, pink and warm the entire time. The patient was awakened from anesthesia and transported to the Postanesthesia Care Unit awake in stable condition at the end of the case. Sponge, needle, instrument counts were correct at the end of the case as reported by the nurses in the room. Conrado MD LOPEZ Valerio , 06:18 PM , 06:42 PM
--- NOTE | 2017-10-22 19:32 | EKG ---
Date Performed: 10/21/2017 Time Performed: 09:02:11 PTAGE: 72 years EKG: Sinus rhythm NORMAL ECG Since the PREVIOUS TRACING , no significant change noted PREVIOUS TRACIN09/19/2016 14.04 DOCTOR: Tuan Dinh Interpretating Date/Time 10/22/2017 19:32:08
== END | disposition home or self-care (01) ==
LOC: PHSDC 07:13
PROVIDERS: ATTEND Orthopaedic Surgery Hand Surgery
DX: T84.84XD Pain due to internal orthopedic prosthetic devices, implants and grafts, subsequent encounter (principal); M25.522 Pain in left elbow; J44.9 Chronic obstructive pulmonary disease, unspecified; Z01.810 Encounter for preprocedural cardiovascular examination
CPT/HCPCS: 01740; 20680; 76000; 93005; J0131; J0744; J2250; J3010; J7120